=== PATIENT | female | born 1960 | race Hispanic/Latino ===

== ENCOUNTER 2023-07-10 21:38 | Observation (INO) | payer OTHER ==
[~2023-07-10 21:38] MED LIST: Iopamidol-370 76% 500 ML MDV (1 ML CHARGE) ONE
[2023-07-10 22:42] LABS: #Monocytes 0.5 thou/uL (0.11-0.59); #Neutrophils 2.9 thou/uL (1.40-6.50); %Basophils 0.6 % (0.0-1.0); %Eosinophils 0.8 % (0.0-10.0); %Lymphocytes 32.5 % (21.0-51.0); %Monocytes 8.8 % (0.0-10.0); %Neutrophils 57.1 % (42.0-75.0); Hematocrit 37.3 % (36.0-47.0); Hemoglobin 12.8 g/dL (12.0-16.0); Mean Corpuscular HGB CONC 34.3 g/dL (32.0-36.0); Mean Corpuscular Hemoglobin 32.6 pg (27.0-31.0); Mean Corpuscular Volume 94.9 fl (78.0-98.0); Mean Platelet Volume 11.5 fL (7.4-10.4); Platelet Count 162 10x3/uL (130-400); RBC Distribution Width 12.1 % (11.5-14.5); Red Blood Cell (RBC) Count 3.93 mill/uL (4.20-5.40); White Blood Cell (WBC) Count 5.1 10x3/uL (4.8-10.8)
[2023-07-10 22:53] LABS: ALT (SGPT) 47 U/L (8-55); AST (SGOT) 46 U/L (5-34); Albumin 3.9 g/dL (3.4-4.8); Alkaline Phosphatase 199 U/L (40-110); Anion Gap 14 mmol/L (10-20); BUN (Urea Nitrogen) 25 mg/dL (9.8-20.1); Bilirubin, Total 0.5 mg/dL (0.2-1.2); Calc. Creatinine Clearance 0 mL/min (70-130); Calcium 8.9 mg/dL (7.8-10.44); Carbon Dioxide 23 mmol/L (23-31); Chloride 103 mmol/L (98-107); Estimated GFR 42; Globulin 3.2 g/dL (2.4-3.5); Glucose 248 mg/dL (80-115); Lipase 160 U/L (8-78); Potassium 5.2 mmol/L (3.5-5.1); Protein, Total 7.1 g/dL (5.8-8.1); Sodium 135 mmol/L (136-145)
[2023-07-10 22:56] LABS: Troponin I Less than 0.010 ng/mL (< 0.028)
[2023-07-10] MEDS ORDERED: Morphine 4 MG/ML VIAL ONE (23:32)
[2023-07-10] MEDS ORDERED: Ondansetron PF 4 MG/2 ML Vial ONE (23:32)
[2023-07-11 03:07] LABS: ALT (SGPT) 46 U/L (8-55); AST (SGOT) 44 U/L (5-34); Albumin 3.9 g/dL (3.4-4.8); Alkaline Phosphatase 189 U/L (40-110); Anion Gap 10 mmol/L (10-20); BUN (Urea Nitrogen) 23 mg/dL (9.8-20.1); Bilirubin, Total 0.4 mg/dL (0.2-1.2); Calc. Creatinine Clearance 0 mL/min (70-130); Calcium 8.9 mg/dL (7.8-10.44); Carbon Dioxide 26 mmol/L (23-31); Chloride 105 mmol/L (98-107); Estimated GFR 51; Globulin 3.6 g/dL (2.4-3.5); Glucose 218 mg/dL (80-115); Potassium 4.8 mmol/L (3.5-5.1); Protein, Total 7.5 g/dL (5.8-8.1); Sodium 136 mmol/L (136-145)
[2023-07-11] MEDS ORDERED: Lactated Ringer's 1,000 ML IV SCH (03:15)
[2023-07-11] MEDS ORDERED: Acetaminophen 325 MG TAB PO PRN (03:24)
[2023-07-11] MEDS ORDERED: Dextrose 50% Abboject 50 ML SYRINGE SLOW IVP PRN (03:24)
[2023-07-11] MEDS ORDERED: Ondansetron ODT 4 MG TAB PO PRN (03:24)
[2023-07-11] MEDS ORDERED: HumaLOG 300 UNITS/3 ML VIAL SC PRN (03:24)
[2023-07-11] MEDS ORDERED: Glucagon 1 MG/ML KIT IM PRN (03:24)
[2023-07-11] MEDS ORDERED: Dextrose 5% in Water 1,000 ML IV PRN (03:24)
[2023-07-11] MEDS ORDERED: Ondansetron PF 4 MG/2 ML Vial IVP PRN (03:24)
[2023-07-11] MEDS ORDERED: Morphine 2 MG/ML VIAL SLOW IVP PRN (03:29)
[2023-07-11] MEDS: Lidocaine 2% Viscous 10 mL, Alum & Magn 30 mL SSW SCH (04:39)
[2023-07-11] MEDS: Lactated Ringer's 1,000 ML IV SCH (04:39)
[2023-07-11] MEDS: Dicyclomine 20 MG TAB PO SCH (04:39)
[2023-07-11 04:52] VITALS: BMI 43.2
[2023-07-11 06:48] LABS: INR-International Normal Ratio 1.4; Prothrombin Time 17.6 sec (12.0-14.7)
[2023-07-11 06:49] LABS: PTT 35.6 sec (22.9-36.1)
[2023-07-11 07:06] LABS: HBCM Index 0.14 S/CO (0-0.79); HBSAg Index 0.37 S/CO (0-0.99); Hep A IgM AB Non-Reactive S/CO (NonReactive); Hep A IgM S/CO 0.25 S/CO (0-0.79); Hep B Surf Ag Non-Reactive S/CO (NonReactive); Hep C IgG Ab Non-Reactive S/CO (NonReactive); Hep C Index 0.14 S/CO (0-0.79); Hepatitis B Core IgM Abs Non-Reactive S/CO (NonReactive)
[2023-07-11] MEDS ORDERED: Semaglutide [Rybelsus] 3 MG Tablet PO SCH (09:00)
[2023-07-11] MEDS: Lisinopril 20 MG TAB PO SCH (09:10)
[2023-07-11] MEDS: Hydrochlorothiazide 25 MG TAB PO SCH (09:10)
[2023-07-11] MEDS: Insulin Glargine 30 UNITS/0.3 ML VIAL SC SCH (09:14)
[2023-07-11] MEDS: Verapamil 180 MG ER.TAB PO SCH (13:17)
[2023-07-11] MEDS: HumaLOG 300 UNITS/3 ML VIAL SC PRN (14:23)
[2023-07-11 16:24] VITALS: BP 142/63; TEMP 98.7
[2023-07-11] MEDS ORDERED: Insulin Glargine 30 UNITS/0.3 ML VIAL SC SCH (21:00)
[2023-07-11] MEDS ORDERED: Simvastatin 10 MG TAB PO SCH (21:00)
[2023-07-12] MEDS ORDERED: Levothyroxine Sodium 50 MCG TAB PO SCH (06:00)
== END 2023-07-11 18:32 | disposition home or self-care (01) ==
LOC: ERS 21:38 → 2SW 07-11 04:09
PROVIDERS: ADMIT Physician Assistant; ATTEND Family Medicine
DX: K85.90 Acute pancreatitis without necrosis or infection, unspecified (principal); N17.9 Acute kidney failure, unspecified; K74.60 Unspecified cirrhosis of liver; I10 Essential (primary) hypertension; E78.5 Hyperlipidemia, unspecified; E11.9 Type 2 diabetes mellitus without complications; E03.9 Hypothyroidism, unspecified; Z79.4 Long term (current) use of insulin; Z90.49 Acquired absence of other specified parts of digestive tract; Z79.899 Other long term (current) drug therapy
CPT/HCPCS: 71045; 74177; 80053 ×2; 80074; 82962; 83690; 84478; 84484; 85025; 85610; 85730; 93005; 96361; G0378 ×2; 36415; 36416; 96374; 96375; J1815; J2270; J2405; J7120; Q9967